=== PATIENT | female | born 1985 | race African-American/Black ===

== ENCOUNTER 2018-12-17 08:10 | Emergency (ER) | payer MEDICAID, OTHER ==
[2018-12-17] MEDS: IBUPROFEN 800 MG TAB PO ×2 (09:02→09:15)
[2018-12-17] MEDS: ACETAMINOPHEN 325 MG TAB PO (09:19)
== END 2018-12-17 09:26 | disposition home or self-care (01) ==
LOC: FTE 08:10
DX: R07.0 Pain in throat (principal)
CPT/HCPCS: 99282; Z7502